=== PATIENT | male | born 1985 | race American Indian/Alaskan Native ===

== ENCOUNTER 2017-12-02 08:24 | Day surgery (SDC) | payer OTHER ==
[2017-12-02 09:01] VITALS: BMI 25.9
[2017-12-02] MEDS ORDERED: Lidocaine 1% Inj (20ml) ONE (10:07)
[2017-12-02] MEDS ORDERED: Absorbable Gelatin Sponge Size 12-7 ONE (10:08)
[2017-12-02 10:10] LABS: INR 0.9 (0.9-1.2); PROTHROMBIN TIME 10.3 Seconds (9.8-13.1)
[2017-12-02] MEDS ORDERED: Midazolam 2 MG/2 ML VIAL ONE (10:11)
--- NOTE | 2017-12-02 10:11 | CP.SDSHP ---
Same Day Surgery H & P - History Proposed Procedure: US Guided Kidney Biopsy Pre-Op Diagnosis: Proteinuria - Allergies Allergies: Allergies shellfish derived Allergy (Verified 12/02/17 09:06) RASH - Physical Exam Vital Signs: Vital Signs 12/02/17 12/02/17 09:35 09:45 Temperature 97.7 F Pulse Rate 58 L 58 L Respiratory 18 Rate Blood Pressure 134/80 O2 Sat by Pulse 98 Oximetry - Impression Impression: 32 year old male with CKD3 and proteinuria, plan US guided non- targeted kidney biopsy - Date & Time Date: 12/02/17 Time: 10:11 Short Stay Discharge - Short Stay Discharge Admitting Diagnosis/Reason for Visit: PROTEINURIA Disposition: HOME/ ROUTINE Referrals: Alexandru Darden MD [Primary Care Provider] -
--- NOTE | 2017-12-02 10:49 | PCM.SURG1 ---
Surgeon's Initial Post Op Note - Surgeon's Notes Surgeon: Ac Diggs MD Graphics Programmer: None Type of Anesthesia: MAC Pre-Operative Diagnosis: Proteinuria, CKD3 Operative Findings: Normal appearance of left kidney without hydronephrosis or nephrolithiasis Post-Operative Diagnosis: Same Operation Performed: US Guided LEFT kidney biopsy Specimen/Specimens Removed: 18g core x 3 Estimated Blood Loss: EBL {In ML}: 10 Date of Surgery/Procedure: 12/02/17 Time of Surgery/Procedure: 10:49
[2017-12-02] MEDS ORDERED: Sodium Chloride 0.9% 1,000 ML IV PRN (10:51)
[2017-12-02] MEDS ORDERED: HYDROmorphone 0.5 mg/0.5 ml ISec IVP PRN (10:51)
[2017-12-02] MEDS ORDERED: Sodium Chloride 0.9% 1,000 ML IV ONE (10:53)
--- NOTE | 2017-12-02 11:21 | US ---
PROCEDURE: ULTRASOUND-GUIDED RENAL BIOPSY CLINICAL HISTORY: 32-year-old male with proteinuria and chronic kidney disease stage 3 is referred to Interventional Radiology for ultrasound-guided renal biopsy. COMPARISON: None. PROCEDURE: 1. Ultrasound-guided renal biopsy. PRE-PROCEDURE FINDINGS: 1. Increased echogenicity without nephrolithiasis, hydronephrosis or contour deforming masses. POST-PROCEDURE FINDINGS: 1. No evidence of post-procedural complication. INTERVENTIONAL RADIOLOGIST: Ac Diggs M.D. (the attending was present for the entire procedure) ANESTHESIA: Provided by the attending anesthesiologist. Sedation was supervised by the anesthesiology attending with the presence of independent radiology nursing monitoring. Physiological data monitoring was performed throughout the entire procedure. The patient's blood pressure, EKG and pulse oximetry were recorded. The patient tolerated the procedure and sedation without untoward reactions. The intra-procedural sedation time was 15 minutes. MEDICATION: Lidocaine 1% for local subcutaneous analgesia. COMPLICATIONS: None. PROCEDURE DESCRIPTION AND FINDINGS: The risks, benefits, alternatives and possible complications of the procedure were fully discussed; all questions were answered and informed consent was obtained. The patient was brought into the interventional suite and a pre-procedure 'time-out' was performed. The patient was placed on the ultrasound table in the prone position. The left flank was prepped and draped in the usual sterile fashion. Maximum sterile barrier precautions were maintained throughout the entire procedure. Preliminary ultrasound images of the left kidney demonstrate increased echogenicity without nephrolithiasis, hydronephrosis or contour deforming masses. Following subcutaneous infiltration of lidocaine 1% for subcutaneous analgesia, under ultrasound guidance, a 17 gauge trocar needle was advanced into the lower pole of the left kidney with real-time visualization of needle entry. The ultrasound images were permanently recorded and submitted to the PACS. The inner stylet was carefully removed. An 18 gauge biopsy device was coaxially loaded into the introducer needle and under ultrasound guidance, a total of 3 core needle biopsies were obtained. The biopsy device and trocar needle were removed. Adequate hemostasis was achieved utilizing manual compression. A sterile adhesive dressing was applied over the puncture site. Post-procedure imaging demonstrated no complications. The patient tolerated the procedure well without immediate post-procedure complications and was transferred to the interventional radiology recovery area in stable condition. IMPRESSION: SUCCESSFUL ULTRASOUND-GUIDED LEFT RENAL BIOPSY.
[2017-12-02 13:48] VITALS: RESP 18
[2017-12-02 17:32] VITALS: BP 120/85; PULSE 65; TEMP 97.6; O2SAT 99
== END 2017-12-02 18:40 | disposition home or self-care (01) ==
LOC: H.OPSURG 08:24
PROVIDERS: ATTEND Specialist
DX: N18.3 Chronic kidney disease, stage 3 (moderate) (principal); R80.8 Other proteinuria
CPT/HCPCS: 36415; 50200; 85610; 88307; J2250; J3010; J7040